=== PATIENT | female | born 1990 | race Two or more races ===

== ENCOUNTER 2023-04-03 00:03 | Emergency (ER) | payer MEDICAID, OTHER ==
[~2023-04-03] VITALS: Ht 162.6 cm; Wt 70.1 kg
[2023-04-03 00:40] LABS: Basophils # (auto) 0 10 ^3/uL (0-0.2); Basophils % (auto) 0.3 % (0.0-2.0); Eosinophils # (auto) 0.2 10 ^3/uL (0-0.8); Eosinophils % (auto) 2.3 % (0.0-7.0); Hematocrit 40.9 % (36.0-46.0); Hemoglobin 14.2 g/dL (12.2-16.2); Mean Corpuscular Hemoglobin 30.8 pg (28.0-32.0); Mean Corpuscular Hgb Conc. 34.7 g/dL (32.0-36.0); Mean Corpuscular Volume 88.8 fL (80.0-100.0); Monocytes # (auto) 0.7 10 ^3/uL (0-1.3); Monocytes % (auto) 8.9 % (0.0-12.0); Neutrophils # (auto) 3.9 10 ^3/uL (1.6-8.6); Neutrophils % (auto) 49.5 % (37.0-80.0); Nucleated Red Blood Cells % 0.1 %; Red Blood Cells 4.61 10^6/uL (4.0-5.20); Red Cell Distribution Width 13.2 % (11.8-14.3); White Blood Cell 7.8 10^3/uL (4.4-10.8)
[2023-04-03 00:44] LABS: Alanine Aminotransferase 49 U/L (7-40); Albumin 4.9 g/dL (3.2-4.8); Alkaline Phosphatase 100 U/L (46-116); Anion Gap 8 (5-15); Aspartate Aminotransferase 19 U/L (13-40); BUN/Creatinine Ratio 16.7 (10.0-20.0); Blood Urea Nitrogen 10 mg/dL (9-23); Calcium 9.5 mg/dL (8.7-10.4); Carbon Dioxide 25 mmol/L (20-30); Chloride 107 mmol/L (98-107); Glucose 99 mg/dL (74-106); Magnesium 1.8 mg/dL (1.6-2.6); Potassium 3.8 mmol/L (3.5-5.1); Sodium 140 mmol/L (136-145)
[2023-04-03 00:45] LABS: Bilirubin, Total 0.3 mg/dL (0.2-1.0); Total Protein 7.6 g/dL (5.7-8.2)
[2023-04-03 00:54] LABS: INR 1.02 (0.9-1.15); Partial Thromboplastin Time 29.2 SEC (24.5-34.5); Prothrombin Time 10.7 sec (9.3-11.8)
[2023-04-03 01:17] LABS: Urine Bacteria NONE SEEN /hpf (None Seen); Urine Blood TRACE /uL (Negative); Urine Clarity Clear (Clear); Urine Color Yellow (Yellow); Urine Mucus FEW (None Seen); Urine Protein, UAD Negative (Negative); Urine Specific Gravity 1.026 (1.001-1.035); Urine Urobilinogen Normal (Negative); Urine WBC 2 /hpf (0 - 5); Urine pH 6.5 (5.0-8.0)
[2023-04-03] MEDS ORDERED: ALPRAZolam 0.5 MG TAB PO ONE (01:45)
[2023-04-03 04:00] VITALS: BP 109/72; PULSE 65; RESP 16; O2SAT 97
== END 2023-04-03 05:40 | disposition home or self-care (01) ==
LOC: ER 00:03
DX: F41.9 Anxiety disorder, unspecified (principal); R07.89 Other chest pain; Z98.890 Other specified postprocedural states; Z79.899 Other long term (current) drug therapy
CPT/HCPCS: 36415; 71045; 80053; 81001; 81025; 83735; 84484; 85025; 85610; 85730; 93005

== ENCOUNTER 2024-08-23 23:58 | Emergency (ER) | payer MEDICAID, OTHER ==
[~2024-08-23] VITALS: Ht 162.6 cm; Wt 70.5 kg
--- NOTE | 2024-08-24 00:50 | DVH ---
EXAM: XY CHEST XRAY 1 VIEW CLINICAL HISTORY: cp TECHNIQUE: Single AP view of the chest WID: COMPARISON: XY CHEST PORTABLE on DOS: 04/03/23 FINDINGS: Lines and tubes: None Chest: The heart size and pulmonary vasculature is within normal limits. No pleural effusion, pneumothorax, or consolidation. The osseous structures are grossly intact. IMPRESSION: No acute cardiopulmonary abnormality.
[2024-08-24 01:11] VITALS: BP 123/85; PULSE 71; RESP 20; TEMP 97.4; O2SAT 99
--- NOTE | 2024-08-24 01:18 | ED.PDOC ---
History of Present Illness HPI Comments 33-year-old female complaining of spitting up blood at 7:00 p.m. and then again prior to arrival. Patient reports having a similar symptom like this three weeks ago which resolved on its own. Patient denies any fever or chills denies any cough or congestion. States no sore throat. It nothing makes it better, nothing makes it worse. Chief Complaint: Sore Throat Time Seen by MD: 00:21 Reviewed Notes: Nurses Notes Allergies: Coded Allergies: NO KNOWN ALLERGIES (Unverified , 04/03/23) Information Source: Patient Mode of Arrival: Ambulatory Past Medical History PAST MEDICAL HISTORY: Denies Surgical History: Appendectomy, Cholecystectomy, LARD MIXER History: No Pertinent LARD MIXER History Family History Family History: Unknown Social History Smoker: Non-Smoker Alcohol: Occasionally Drugs: Denies Drug Use Constitutional: denies: chills, diaphoresis, fatigue, fever, malaise, sweats, weakness, others EENTM: denies: blurred vision, double vision, ear bleeding, ear discharge, ear drainage, ear pain, ear ringing, eye pain, eye redness, hearing loss, mouth pain, mouth swelling, nasal discharge, nose bleeding, nose congestion, nose pain, photophobia, tearing, throat pain, throat swelling, voice changes, others Respiratory: denies: cough, hemoptysis, orthopnea, SOB at rest, shortness of breath, SOB with excertion, stridor, wheezing, others Cardiovascular: denies: chest pain, dizzy spells, diaphoresis, Dyspnea on exertion, edema, irregular heart beat, left arm pain, lightheadedness, palpitations, PND, syncope, others Gastrointestinal: denies: abdomen distended, abdominal pain, blood streaked bowels, constipated, diarrhea, dysphagia, difficulty swallowing, hematemesis, melena, nausea, poor appetite, poor fluid intake, rectal bleeding, rectal pain, vomiting, others Genitourinary: denies: abnormal vagina bleeding, burning, dyspareunia, dysuria, flank pain, frequency, hematuria, incontinence, pain, , vagina discharge, urgency, others Neurological: denies: dizziness, fainting, headache, left sided numbness, left sided weakness, numbness, paresthesia, pre-existing deficit, right sided numbness, right sided weakness, seizure, speech problems, tingling, tremors, weakness, others Musculoskeletal: denies: back pain, gout, joint pain, joint swelling, muscle pain, muscle stiffness, neck pain, others Integumetry: denies: bruises, change in color, change in hair/nails, dryness, laceration, lesions, lumps, rash, wounds, others Allergic/Immunocompromised: denies: Difficulty Healing, Frequent Infections, Hives, Itching, others Physical Exam General Appearance: No Apparent Distress, Normal HEENT: Normal ENT Inspection, Pharynx Normal, TMs Normal Neck: Full Range of Motion, Non-Tender, Normal, Normal Inspection Respiratory: Chest Non-Tender, Lungs Clear, No Accessory Muscle Use, No Respiratory Distress, Normal Breath Sounds Cardiovascular: No Edema, No JVD, No Murmur, No Gallop, Normal Peripheral Pulses, Regular Rate/Rhythm Breast Exam: Deferred Gastrointestinal: No Organomegaly, Non Tender, No Pulsatile Mass, Normal Bowel Sounds, Soft Genitalia: Deferred Pelvic: Deferred Rectal: Deferred Extremities: No calf tenderness, Normal capillary refill, Normal inspection, Normal range of motion, Non-tender, No pedal edema Musculoskeletal : Apperance: Normal Neurologic: Alert, 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 Was a procedure done?: No Differential Dx Considerations may include: Pharyngitis, hemoptysis, gastritis X-Ray, Labs, Meds, VS Vital Signs Date Time Temp Pulse Resp B/P (MAP) Pulse Ox O2 Delivery O2 Flow Rate FiO2 08/24/24 00:30 98.3 82 16 139/89 (106) 98 98.3 X-Ray, Labs, Meds, VS Comment Imaging: X-rays and CT scans were reviewed and interpreted by this provider, imaging shows no fractures and no pathological disease. Pending radiology review. Laboratory: Labs reviewed and interpreted by this provider. No significant abnormalities noted. Patient has prior medical visits reviewed. Med reconciliation performed Vital signs reviewed Time of 1ST Reevaluation: 01:18 Reevaluation 1ST: Improved Patient Education/Counseling: Diagnosis, Treatment, Need For Follow Up (Follow up in the emergency department in the next 24-48 hours if symptoms worsen. It was advised to follow up with your primary care doctor in the next 3-4 days for further evaluation.) Family Education/Counseling: Diagnosis Departure 1 Departure Time of Disposition: 01:18 Impression: Primary Impression: Pharyngitis Qualified Codes: J02.9 - Acute pharyngitis, unspecified Disposition: 01 HOME / SELF CARE / HOMELESS Condition: Fair Discharged With: Self Critical Care Note Critical Care Time?: No Stability Stability form required: No Heart Score Heart Score: Heart Score Response (Comments) Value History N/A 0 EKG N/A 0 Age N/A 0 Risk Factors N/A 0 Troponin N/A 0 Total 0 [facility] Aug 24, 2024 01:18
== END 2024-08-24 01:27 | disposition home or self-care (01) ==
LOC: ER 23:58
DX: J02.9 Acute pharyngitis, unspecified (principal); Z90.49 Acquired absence of other specified parts of digestive tract; Z90.89 Acquired absence of other organs; Z98.890 Other specified postprocedural states
CPT/HCPCS: 71045

== ENCOUNTER 2025-01-01 13:08 | Outpatient (CLI) | payer OTHER ==
[2025-01-01 13:32] LABS: Hematocrit 40.4 % (36.0-46.0); Hemoglobin 14.3 g/dL (12.2-16.2); Mean Corpuscular Hemoglobin 31.2 pg (28.0-32.0); Mean Corpuscular Volume 87.9 fL (80.0-100.0); Nucleated Red Blood Cells % 0.0 %
[2025-01-01 13:47] LABS: Urine Protein, UAD Negative (Negative)
[2025-01-01 14:01] LABS: Alanine Aminotransferase 38 U/L (7-40); Alkaline Phosphatase 82 U/L (46-116); Anion Gap 9 (5-15); BUN/Creatinine Ratio 17.9 (10.0-20.0); Blood Urea Nitrogen 12 mg/dL (9-23); Calcium 10.3 mg/dL (8.7-10.4); Carbon Dioxide 28 mmol/L (20-31); Chloride 104 mmol/L (98-107); Glucose 91 mg/dL (74-106); Potassium 4.2 mmol/L (3.5-5.1); Sodium 141 mmol/L (136-145); Total Protein 7.6 g/dL (5.7-8.2); Triglycerides 145 mg/dL (< 150)
[2025-01-01 14:03] LABS: Albumin 5.1 g/dL (3.2-4.8); Bilirubin, Total 0.6 mg/dL (0.2-1.0); Cholesterol 261 mg/dL (< 200); HDL Cholesterol 51 mg/dL (40-59)
== END 2025-01-01 17:00 | disposition home or self-care (01) ==
LOC: LAB 13:08
PROVIDERS: ATTEND Nurse Practitioner Family
DX: I10 Essential (primary) hypertension (principal); E78.5 Hyperlipidemia, unspecified; K62.0 Anal polyp; Z00.01 Encounter for general adult medical examination with abnormal findings
CPT/HCPCS: 36415; 80053; 80061; 81003; 82306; 83036; 84443; 85025

== ENCOUNTER → 2025-01-26 | Outpatient (CLI) | payer OTHER ==
[2025-01-26 13:02] LABS: Alkaline Phosphatase 72 U/L (46-116); Anion Gap 10 (5-15); BUN/Creatinine Ratio 18.5 (10.0-20.0); Bilirubin, Total 0.8 mg/dL (0.2-1.0); Blood Urea Nitrogen 12 mg/dL (9-23); Calcium 9.3 mg/dL (8.7-10.4); Carbon Dioxide 25 mmol/L (20-31); Chloride 105 mmol/L (98-107); Cholesterol 166 mg/dL (< 200); Glucose 84 mg/dL (74-106); HDL Cholesterol 45 mg/dL (40-59); Potassium 3.8 mmol/L (3.5-5.1); Sodium 140 mmol/L (136-145); Total Protein 7.3 g/dL (5.7-8.2)
[2025-01-26 13:10] LABS: Alanine Aminotransferase 45 U/L (7-40); Albumin 5.0 g/dL (3.2-4.8); Triglycerides 152 mg/dL (< 150)
== END | disposition home or self-care (01) ==
LOC: LAB 12:10
PROVIDERS: ATTEND Nurse Practitioner Family
DX: E78.5 Hyperlipidemia, unspecified (principal); E55.9 Vitamin D deficiency, unspecified
CPT/HCPCS: 36415; 80053; 80061

== ENCOUNTER → 2025-02-10 | Day surgery (SDC) | payer OTHER ==
[2025-02-08 14:29] LABS: Hematocrit 42.0 % (36.0-46.0); Hemoglobin 14.9 g/dL (12.2-16.2); Mean Corpuscular Hemoglobin 31.3 pg (28.0-32.0); Mean Corpuscular Volume 88.3 fL (80.0-100.0); Nucleated Red Blood Cells % 0.1 %
[2025-02-08 14:40] LABS: INR 1.02 (0.9-1.15); Partial Thromboplastin Time 28.2 SEC (24.5-34.5); Prothrombin Time 10.8 sec (9.3-11.8)
[2025-02-08 14:46] LABS: Alkaline Phosphatase 96 U/L (46-116); Anion Gap 10 (5-15); BUN/Creatinine Ratio 18.1 (10.0-20.0); Blood Urea Nitrogen 13 mg/dL (9-23); Calcium 9.7 mg/dL (8.7-10.4); Carbon Dioxide 27 mmol/L (20-31); Chloride 105 mmol/L (98-107); Glucose 85 mg/dL (74-106); Potassium 4.0 mmol/L (3.5-5.1); Sodium 142 mmol/L (136-145); Total Protein 8.2 g/dL (5.7-8.2)
[2025-02-08 14:47] LABS: Alanine Aminotransferase 62 U/L (7-40); Albumin 5.2 g/dL (3.2-4.8); Bilirubin, Total 0.7 mg/dL (0.2-1.0)
[~2025-02-10] VITALS: Ht 160 cm; Wt 68.9 kg
[~2025-02-10] MED LIST: ACE650RS PR; ATOR20TA50 PO; MELA10TA3 OR
[2025-02-10] MEDS: MIDAZOLAM HCL 2MG/2ML 2ml VIAL (1mg/ml) ONE ×2 (10:05→10:12)
[2025-02-10] MEDS: fentaNYL CITRATE 100 MCG/2 ML VL ONE (10:05)
[2025-02-10 10:24] VITALS: PULSE 60; RESP 17; TEMP 98.2; O2SAT 98
--- NOTE | 2025-02-10 10:25 | DVHNC2 ---
Procedure - DATE OF PROCEDURE: 2024 SURGEON: ESTELA OLEARY MD REFERRING PROVIDER: SELVIN OLMEDO MD PROCEDURE PERFORMED: 1. Colonoscopy with moderate sedation PRE-PROCEDURE DIAGNOSIS: 1. Hematochezia POSTPROCEDURE DIAGNOSIS 1. Internal and external hemorrhoids 2. Small anal fissure MEDICATIONS USED: 6 MG OF VERSED IV AND 100 MCG OF FENTANYL IV DETAILS OF THE PROCEDURE: Informed consent was obtained after risks, benefits, and alternatives, were discussed at length with the patient. The patient gave consent to the procedure as well as the medication used for sedation. The patient was placed in the left lateral decubitus position. Digital rectal exam showed internal and external hemorrhoids. An Olympus variable torsion pediatric colonoscope was inserted into the rectum and advanced to the cecum . The cecum was identified by the ileocecal valve and the appendiceal orifice. the scope was then withdrawn. The prep was good with only small amounts of stool. [place] bowel prep score of nine was noted. There were no polyps, masses, strictures, or arteriovenous malform ation seen. More than 6 minutes of withdrawal time was noted. Retroflexion showed internal hemorrhoids. Withdrawal of the scope shows a very small anal fissure. The patient tolerated the procedure well. START TIME : 1012 CECUM TIME : 1014 END TIME: 1020 IMPRESSION: Internal and external hemorrhoids and small anal fissure hematochezia likely due to the anal fissure RECOMMENDATIONS: 1. Follow up with surgical recommendations 2. Consider medical management of the hemorrhoids 3. High-fiber diet 4. Repeat colonoscopy at age of screening unless otherwise indicated I WOULD LIKE TO THANK DR. SELVIN OLMEDO FOR THIS REFERRAL ESTELA OLEARY MD Feb 10, 2025 10:25
[2025-02-10 10:55] VITALS: BP 110/67; PULSE 75; RESP 16; O2SAT 99
== END | disposition home or self-care (01) ==
LOC: GI 07:37
PROVIDERS: ATTEND Specialist
DX: K92.1 Melena (principal); K64.8 Other hemorrhoids; K64.4 Residual hemorrhoidal skin tags; K60.2 Anal fissure, unspecified; E78.00 Pure hypercholesterolemia, unspecified; Z90.49 Acquired absence of other specified parts of digestive tract; Z98.891 History of uterine scar from previous surgery
CPT/HCPCS: 36415; 45378; 80053; 81025; 85025; 85610; 85730; J2250; J3010

== ENCOUNTER 2025-03-29 07:17 | Day surgery (SDC) | payer OTHER ==
[2025-03-27 11:19] LABS: Hematocrit 40.5 % (36.0-46.0); Hemoglobin 14.1 g/dL (12.2-16.2); Mean Corpuscular Hemoglobin 30.5 pg (28.0-32.0); Mean Corpuscular Volume 87.7 fL (80.0-100.0); Nucleated Red Blood Cells % 0.0 %
[2025-03-27 11:42] LABS: INR 1.0 (0.9-1.15); Partial Thromboplastin Time 28.2 SEC (24.5-34.5); Prothrombin Time 10.6 sec (9.3-11.8)
[2025-03-27 12:10] LABS: Albumin 4.8 g/dL (3.2-4.8); Alkaline Phosphatase 79 U/L (46-116); Anion Gap 10 (5-15); BUN/Creatinine Ratio 14.5 (10.0-20.0); Bilirubin, Total 0.7 mg/dL (0.2-1.0); Blood Urea Nitrogen 10 mg/dL (9-23); Calcium 9.4 mg/dL (8.7-10.4); Carbon Dioxide 27 mmol/L (20-31); Chloride 104 mmol/L (98-107); Glucose 88 mg/dL (74-106); Potassium 4.3 mmol/L (3.5-5.1); Sodium 141 mmol/L (136-145); Total Protein 7.7 g/dL (5.7-8.2)
[2025-03-27 12:11] LABS: Alanine Aminotransferase 42 U/L (7-40)
[2025-03-27 12:27] LABS: Urine Protein, UAD Negative (Negative)
[~2025-03-29] VITALS: Ht 162.6 cm; Wt 70.3 kg
[2025-03-29] MEDS ORDERED: SUCCINYLCHOLINE CHLORIDE 20 MG/ML 10ML VIAL IV ONE (08:45)
[2025-03-29] MEDS ORDERED: HYDROmorphone HCL 2 MG/ML VL/or syr ONE (08:47)
[2025-03-29] MEDS ORDERED: fentaNYL CITRATE 100 MCG/2 ML VL ONE (08:47)
[2025-03-29] MEDS ORDERED: PROPOFOL 10 MG/ML 20 ML IV ONE (08:47)
[2025-03-29] MEDS ORDERED: GELATIN 1 SPONGE SIZE 100 TOP ONE (08:53)
[2025-03-29] MEDS ORDERED: LIDOCAINE 2% JELLY 11ml (GLYDO) ONE (09:22)
[2025-03-29] MEDS: ceFAZolin 2 GM/D5W50ml 50 ML IV ONE (10:01)
[2025-03-29] MEDS: BUPIVACAINE 0.25% INJ 50ML VIAL ONE (10:24)
[2025-03-29] MEDS ORDERED: ONDANSETRON HCL 4 MG/2 ML VIAL ONE (10:29)
[2025-03-29 11:36] VITALS: TEMP 97.3; O2SAT 98
--- NOTE | 2025-03-29 11:43 | DVHOP2 ---
Operative Report - 2 Report Details Date: 03/29/25 Preop Diagnosis: Hemorrhoids Postop Diagnosis: Internal hemorrhoids and external skin tags Surgeon: Stephon Salvador MD Anesthesiologist: Dr. Beltran Anesthesia: General Consent: The patient was informed of the risks and benefits of the procedure. These include but are not limited to complications of anesthesia, postoperative infection, incomplete relief of symptoms, recurrence of symptoms, damage to blood vessels, nerves and tendons, deep venous thrombosis, pulmonary embolism and possible need for repeat surgery in the future. Complications: None Estimated Blood Loss: 15 mL Findings: Large right posterior column hemorrhoid Small left lateral column hemorrhoid External skin tag at the 6 o'clock position Indications for Surgery: Hemorrhoids causing occasional pain, this comfort, and bleeding Name of Procedure Performed Two-column Kendell Giuseppe hemorrhoidectomy Procedure Details Procedure Details: Upon arriving to the operating room the patient was transferred to the operating table and placed in the supine position. General endotracheal anesthesia was induced. Patient was then positioned in the prone wilma-knife. Time-out was observed. Bilateral gluteus was pulled laterally with tape secured to the bed. Patient was prepped and draped in the standard sterile surgical fashion with Betadine-Betadine. I then proceeded to perform a digital rectal exam, no masses felt. I then proceeded to perform serial dilations with rectal retractor, starting with the smallest. I then utilized a medial retractor to visualize the anal rectal area. I noted a large right posterior column hemorrhoid and a small left lateral column hemorrhoid. I also noted and external skin tag complex associated with each of the columns and a separate small skin tag at the 6 o'clock position. I then proceeded to expose with a rectal speculum the right posterior column hemorrhoid. I then placed a 2-0 chromic suture at the apex of the hemorrhoid, for vascular control. Utilizing the DeBakey forceps I lifted the hemorrhoidal complex off of the underlying tissue and demarcated the hemorrhoid with a 15 blade. I then performed a Kendell Giuseppe hemorrhoidectomy utilizing a combination of LigaSure device, Metzenbaum scissors and cautery. H emorrhoidal complex was passed off as specimen. I obtained hemostasis with cautery. I then proceeded to expose the left lateral hemorrhoid, again utilizing the speculum. I also excised this hemorrhoid in the same fashion as the previous. I also used cautery to achieve hemostasis. I then irrigated the anorectal area, no other areas of oozing were noted. There was plenty of ano derm between the hemorrhoidectomies. I then directed my attention to the skin tag at the 6 o'clock position. I grasped the tag with an Allis clamp and transected it superficially. I achieved hemostasis with cautery. I then closed this defect which was approximately 0.5 cm in length with subcutaneous running 3-0 Vicryl. All counts complete and correct at the end of the procedure. I then packed the rectum with surgery foam. 0.25% Marcaine was used for perianal/perirectal block. Anus was dressed with 4 x 4 gauze, ABD pad and tape. Patient tolerated the procedure well and was transferred to PACU in stable condition. Specimen: Right posterior column hemorrhoidal complex and left lateral column hemorrhoidal complex Condition Stable Disposition Home STEPHON ACOSTA MD Mar 29, 2025 11:43
[2025-03-29] MEDS ORDERED: HYDROmorphone HCL 2 MG/ML VL/or syr IV PRN (11:45)
[2025-03-29] MEDS ORDERED: ONDANSETRON HCL 4 MG/2 ML VIAL IV PRN (11:45)
[2025-03-29] MEDS: ACETAMINOPHEN IV 1000 MG/100ML (10MG/ML) IV PRN (11:55)
[2025-03-29] MEDS ORDERED: ACETAMINOPHEN IV 100 ML IV ONE (11:55)
[2025-03-29] MEDS: diphenhydrAMINE HCL 50 MG/1 ML VL IV PRN (12:52)
[2025-03-29] MEDS ORDERED: diphenhydrAMINE HCL 50 MG/1 ML VL ONE (12:54)
[2025-03-29 14:03] VITALS: BP 137/74; PULSE 77; RESP 19; O2SAT 96
== END 2025-03-29 14:26 | disposition home or self-care (01) ==
LOC: SUR 07:17
PROVIDERS: ATTEND Student in an Organized Health Care Education/Training Program
DX: K64.8 Other hemorrhoids (principal); K64.4 Residual hemorrhoidal skin tags; E78.5 Hyperlipidemia, unspecified; Z79.899 Other long term (current) drug therapy; Z98.891 History of uterine scar from previous surgery; Z98.890 Other specified postprocedural states; Z90.49 Acquired absence of other specified parts of digestive tract; Z80.0 Family history of malignant neoplasm of digestive organs
CPT/HCPCS: 36415; 46260; 80053; 81001; 81025; 85025; 85610; 85730; 88304; J0330; J0690; J1100; J1171; J1200; J2405; J2704; J3010; J0131; J3490